=== PATIENT | female | born 1965 | race American Indian/Alaskan Native ===

== ENCOUNTER 2018-01-01 08:02 | Day surgery (SDC) | payer MEDICAID ==
[2018-01-01 08:40] VITALS: O2SAT 100
--- NOTE | 2018-01-01 10:03 | CP.SDSHP ---
Same Day Surgery H & P - History Proposed Procedure: colonoscopy - Previous Medical/Surgical History Cardiac: Hypertension Previous Surgical History: G sleeve hysterectomy - Allergies Allergies: Allergies No Known Allergies Allergy (Verified 01/01/18 08:32) - Physical Exam Vital Signs: Vital Signs 01/01/18 01/01/18 08:15 08:47 Temperature 97 F L Pulse Rate 80 80 Respiratory 20 Rate Blood Pressure 183/90 H O2 Sat by Pulse 100 Oximetry - Date & Time Date: 01/01/18 Time: 10:03 Short Stay Discharge - Short Stay Discharge Admitting Diagnosis/Reason for Visit: CHANGE IN BOWEL HABITS Disposition: HOME/ ROUTINE
[2018-01-01] MEDS ORDERED: Propofol 10 mg/ml Inj (20 ML) ONE ×2 (10:04→10:23)
[2018-01-01] MEDS ORDERED: Simethicone 40 mg/0.6 ml Liquid (30 ml) ONE ×2 (10:25)
[2018-01-01 10:57] VITALS: TEMP 97.9
[2018-01-01 11:30] VITALS: BP 133/76; PULSE 88; RESP 12
== END 2018-01-01 11:15 | disposition home or self-care (01) ==
LOC: C.ENDO 08:02
PROVIDERS: ATTEND Colon & Rectal Surgery
DX: R19.4 Change in bowel habit (principal); Z12.11 Encounter for screening for malignant neoplasm of colon; K57.30 Diverticulosis of large intestine without perforation or abscess without bleeding; K64.8 Other hemorrhoids
CPT/HCPCS: 45378; J2001; J2704